=== PATIENT | female | born 1970 | race Hispanic/Latino ===

== ENCOUNTER 2018-04-21 19:53 | Emergency (ER) | payer MEDICAID ==
[2018-04-21] MEDS ORDERED: ACETAMINOPHEN 325 MG TAB ONE (20:17)
== END 2018-04-21 20:46 | disposition home or self-care (01) ==
LOC: EDH 19:53
DX: S90.122A Contusion of left lesser toe(s) without damage to nail, initial encounter (principal); Z98.890 Other specified postprocedural states; W23.0XXA Caught, crushed, jammed, or pinched between moving objects, initial encounter; Y93.89 Activity, other specified; Y92.098 Other place in other non-institutional residence as the place of occurrence of the external cause; Y99.8 Other external cause status
CPT/HCPCS: 73660

== ENCOUNTER 2019-09-15 07:31 | Emergency (ER) | payer MEDICAID ==
[2019-09-15] MEDS ORDERED: ONDANSETRON HCL 4 MG/2 ML VIAL ONE (08:04)
[2019-09-15] MEDS ORDERED: SODIUM CHLORIDE 0.9% 1000ML 1,000 ML IV ONE (08:05)
[2019-09-15 08:18] LABS: BASOPHILS % (AUTO) 0.3 % (0.0-5.0); EOSINOPHILS % (AUTO) 3.7 % (0.0-8.0); HEMATOCRIT 43.4 % (36-48); LYMPHOCYTES % (AUTO) 7.1 % (21.0-51.0); MEAN CORPUSCULAR HEMOGLOBIN 29.4 pg (27.0-33.0); MEAN CORPUSCULAR HGB CONC 33.8 g/dL (32.0-36.0); MEAN CORPUSCULAR VOLUME 87.1 fL (79-99); MONOCYTES % (AUTO) 4.7 % (3.0-13.0); NEUTROPHILS % (AUTO) 84.2 % (40.0-77.0); PLATELET COUNT (AUTO) 230 K/uL (130-400); RED BLOOD CELL COUNT(AUTO) 4.98 MIL/uL (4.00-5.50); RED CELL DISTRIBUTION WIDTH 14.4 % (11.0-15.5); WHITE BLOOD COUNT (AUTO) 9.8 K/uL (4.8-10.8)
[2019-09-15] MEDS ORDERED: KETOROLAC TROMETHAMINE 30MG/ML ONE (08:21)
[2019-09-15 08:35] LABS: AMPHET/METH SCREEN,URINE NEGATIVE (NEGATIVE); BARBITURATE SCREEN, URINE NEGATIVE (NEGATIVE); BENZODIAZEPINES SCREEN,URINE NEGATIVE (NEGATIVE); CANNABINOID SCREEN,URINE NEGATIVE (NEGATIVE); COCAINE SCREEN,URINE NEGATIVE (NEGATIVE); OPIATE SCREEN,URINE NEGATIVE (NEGATIVE); PHENCYCLIDINE SCREEN,URINE NEGATIVE (NEGATIVE)
[2019-09-15 08:40] LABS: POTASSIUM 4.1 mmol/L (3.5-5.1)
[2019-09-15 08:46] LABS: ALBUMIN 3.3 g/dL (3.5-5.0); BILIRUBIN,TOTAL 0.4 mg/dL (0.2-1.0); TOTAL PROTEIN, SERUM 7.4 g/dL (6.0-8.3)
== END 2019-09-15 09:41 | disposition home or self-care (01) ==
LOC: EDH 07:31
DX: K52.9 Noninfective gastroenteritis and colitis, unspecified (principal); Z90.49 Acquired absence of other specified parts of digestive tract
CPT/HCPCS: 36415; 74176; 80053; 80305; 81025; 83690; 85025; 96361; 96374; 96375; 99285; J1885; J2405; J7030

== ENCOUNTER 2019-11-16 14:43 | Emergency (ER) | payer MEDICAID | END 2019-11-16 14:53 | disposition home or self-care (01) | LOC: EDH 14:43 | DX: K04.7 Periapical abscess without sinus (principal); Z98.890 Other specified postprocedural states; Z90.49 Acquired absence of other specified parts of digestive tract ==

== ENCOUNTER 2020-01-25 12:02 | Emergency (ER) | payer MEDICAID ==
[2020-01-25] MEDS ORDERED: KETOROLAC TROMETHAMINE 60 MG/2 ML VIAL ONE (13:13)
[2020-01-25] MEDS ORDERED: LIDOCAINE 5% TOPICAL PATCH TP ONE (13:13)
== END 2020-01-25 14:23 | disposition home or self-care (01) ==
LOC: EDH 12:02
DX: S29.011A Strain of muscle and tendon of front wall of thorax, initial encounter (principal); Z98.890 Other specified postprocedural states; Z90.49 Acquired absence of other specified parts of digestive tract; X58.XXXA Exposure to other specified factors, initial encounter; Y93.89 Activity, other specified; Y92.89 Other specified places as the place of occurrence of the external cause; Y99.8 Other external cause status
CPT/HCPCS: 71101; 96372; 99283; J1885

== ENCOUNTER 2020-09-17 18:49 | Emergency (ER) | payer MEDICAID, OTHER | END 2020-09-17 21:36 | disposition home or self-care (01) | LOC: EDH 18:49 | DX: S40.022A Contusion of left upper arm, initial encounter (principal); Z90.49 Acquired absence of other specified parts of digestive tract; Z98.890 Other specified postprocedural states; Z87.891 Personal history of nicotine dependence; W18.39XA Other fall on same level, initial encounter; Y93.89 Activity, other specified; Y92.89 Other specified places as the place of occurrence of the external cause; Y99.8 Other external cause status | CPT/HCPCS: 73060; 73090; 73110 ==

== ENCOUNTER 2020-11-05 04:17 | Emergency (ER) | payer MEDICAID ==
[2020-11-05] MEDS ORDERED: SULFAMETHOX-TMP DS 800/160 TAB ONE (05:44)
== END 2020-11-05 06:42 | disposition home or self-care (01) ==
LOC: EDH 04:17
DX: N39.0 Urinary tract infection, site not specified (principal); Z90.49 Acquired absence of other specified parts of digestive tract; Z98.890 Other specified postprocedural states

== ENCOUNTER 2024-06-09 11:21 | Emergency (ER) | payer MEDICAID, OTHER ==
[~2024-06-09] VITALS: Ht 149.9 cm; Wt 72.6 kg
[2024-06-09 11:40] VITALS: BP 106/61
[2024-06-09] MEDS: ALBUTEROL 0.083% 2.5 MG/3 ML INH IH ONE (13:31)
[2024-06-09 13:32] VITALS: PULSE 84; RESP 21
[2024-06-09] MEDS: SOLU-MEDROL 125MG VIAL IM ONE (13:49)
[2024-06-09] MEDS ORDERED: METH4TAB3 PO (15:22)
[2024-06-09] MEDS ORDERED: ALBUHFA IH (15:22)
[2024-06-09 15:27] VITALS: PULSE 87; RESP 20; O2SAT 98
== END 2024-06-09 15:28 | disposition home or self-care (01) ==
LOC: EDH 11:21
DX: J98.01 Acute bronchospasm (principal); Z79.899 Other long term (current) drug therapy
CPT/HCPCS: 99283; 96372; 94640; J2919

== ENCOUNTER 2024-07-12 16:39 | Emergency (ER) | payer MEDICAID ==
[~2024-07-12] VITALS: Ht 149.9 cm; Wt 72.6 kg
[~2024-07-12 16:39] MED LIST: ALBUHFA IH; METH4TAB3 PO
[2024-07-12 17:08] VITALS: BP 115/76; PULSE 74; RESP 18; O2SAT 98
[2024-07-12 17:13] LABS: BASOPHILS # (AUTO) 0.03 K/uL (0.00-0.20); BASOPHILS % (AUTO) 0.4 % (0.0-5.0); EOSINOPHILS # (AUTO) 0.35 K/uL (0.00-0.70); EOSINOPHILS % (AUTO) 4.8 % (0.0-8.0); HEMATOCRIT 39.1 % (36-48); IMMATURE GRANULOCYTE ABSOLUTE 0.03 K/uL (0-1); LYMPHOCYTES # (AUTO) 2.4 K/uL (1.0-4.8); LYMPHOCYTES % (AUTO) 32.6 % (21.0-51.0); MEAN CORPUSCULAR HEMOGLOBIN 29.6 pg (27.0-33.0); MEAN CORPUSCULAR VOLUME 87.1 fL (79-99); MONOCYTES # (AUTO) 0.6 K/uL (0.1-1.0); MONOCYTES % (AUTO) 8.1 % (3.0-13.0); NEUTROPHILS # (AUTO) 3.9 K/uL (1.8-7.7); NEUTROPHILS % (AUTO) 53.7 % (40.0-77.0); PLATELET COUNT (AUTO) 310 K/uL (130-400); RED BLOOD CELL COUNT(AUTO) 4.49 MIL/uL (4.00-5.50); RED CELL DISTRIBUTION WIDTH 13.5 % (11.0-15.5); WHITE BLOOD COUNT (AUTO) 7.3 K/uL (4.8-10.8)
[2024-07-12 17:32] LABS: CREATININE 1.4 mg/dL (0.5-1.0); POTASSIUM 3.9 mmol/L (3.5-5.1)
[2024-07-12 17:46] LABS: B-TYPE NATRIURETIC PEPTIDE 9 pg/mL (0-100)
[2024-07-12] MEDS: ASPIRIN 81MG CHEW TAB PO ONE (17:55)
[2024-07-12] MEDS: PANTOPRAZOLE 40 MG/VIAL IVP ONE (17:55)
[2024-07-13] MEDS ORDERED: ASPIRIN 81MG CHEW TAB PO SCH (09:00)
== END 2024-07-12 17:55 | disposition left against medical advice (07) ==
LOC: EDH 16:39
DX: R07.89 Other chest pain (principal); R05.9 Cough, unspecified; R09.82 Postnasal drip; E78.00 Pure hypercholesterolemia, unspecified; Z79.899 Other long term (current) drug therapy; Z90.49 Acquired absence of other specified parts of digestive tract; Z98.890 Other specified postprocedural states; Z53.29 Procedure and treatment not carried out because of patient's decision for other reasons
CPT/HCPCS: 36415; 80048; 82550; 83880; 84484; 85025; 93005; J2470